=== PATIENT | female | born 1975 | race American Indian/Alaskan Native ===

== ENCOUNTER 2018-06-19 07:12 | Observation (INO) | payer MEDICAID ==
[2018-06-14 10:48] LABS: Basophils # (Auto) 0.1 K/mm3 (0.0-0.1); Basophils % (Auto) 1.1 % (0.0-1.8); Eosinophils # (Auto) 0.1 K/mm3 (0.0-0.4); Eosinophils % (Auto) 2.6 % (0.0-4.3); Hematocrit 35.3 % (30.3-42.9); Hemoglobin 11.9 gm/dl (10.1-14.3); Lymphocytes # (Auto) 1.9 K/mm3 (1.2-5.4); Mean Corpuscular HGB Conc 34 % (30-34); Mean Corpuscular Volume 80 fl (79-97); Monocytes # (Auto) 0.3 K/mm3 (0.0-0.8); Platelet Count 345 K/mm3 (140-440); Red Blood Count 4.41 M/mm3 (3.65-5.03)
--- NOTE | 2018-06-14 10:52 | Anesthesia Consultation ---
Anesthesia Consult and Med Hx Date of service: 06/19/18 - Airway Anesthetic Teeth Evaluation: Good ROM Head & Neck: Adequate Mental/Hyoid Distance: Adequate Mallampati Class: Class II Intubation Access Assessment: Good - Pulmonary Exam CTA: Yes - Cardiac Exam Cardiac Exam: RRR - Pre-Operative Health Status ASA Pre-Surgery Classification: ASA2 Proposed Anesthetic Plan: General - Cardiovascular System Hx Hypertension: Yes (x 7yrs) - Central Nervous System Hx Psychiatric Problems: No - Hematic Hx Anemia: Yes - Other Systems Hx Cancer: No
[2018-06-14 10:55] LABS: Red Cell Distribution Width 21.2 % (13.2-15.2)
[~2018-06-19 07:12] MED LIST: LACTATED RINGERS 1,000 ML IV SCH; NEURONTIN PO NR; SUBLIMAZE IV SCH; TYLENOL PO NR; VERSED IV SCH
--- NOTE | 2018-06-19 07:58 | History and Physical Report ---
History of Present Illness Date of examination: 06/19/18 Chief complaint: Symptomatic uterine fibroids History of present illness: Pt is a 43yo BF LMP 04/02/18 presents for surgical evaluation and treatment of uterine fibroids. She complains of prolonged heavy vaginal bleeding and pelvic pain. Pelvic u/s showed an enlarged uterus 11.2 x 9 x 8cm with several fibroids. She desires a Hysterectomy with ovarian conservation, and is therefore scheduled for a Robotic Assisted Total Hysterectomy with Bilateral salpingectomy. 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 Family/Genetic History: none Social history: no significant social history, single Medications and Allergies Allergies Allergy/AdvReac Type Severity Reaction Status Date / Time No Known Allergies Allergy Unverified 06/13/18 10:00 Home Medications Medication Instructions Recorded Confirmed Last Taken Type Atenolol [Tenormin] 50 mg PO DAILY 06/13/18 06/13/18 Unknown History Ergocalciferol(Vitamin D2)(Nf) 400 unit PO DAILY 06/13/18 06/13/18 Unknown History [Vitamin D (Nf)] Ferrous Sulfate [Iron 325 MG] 325 mg PO DAILY 06/13/18 06/13/18 Unknown History amLODIPine [Norvasc] 10 mg PO DAILY 06/13/18 06/13/18 Unknown History Active Meds: Active Medications Fentanyl (Sublimaze) 100 mcg IV ONCE WU Stop: 06/19/18 23:00 Last Admin: 06/19/18 07:24 Dose: 100 mcg Documented by: Gabapentin (Neurontin) 300 mg PO PREOP NR Stop: 06/19/18 23:00 Last Admin: 06/19/18 07:26 Dose: 300 mg Documented by: Lactated Ringer's (Lactated Ringers) 1,000 mls @ 42 mls/hr IV DIRECT WU Last Admin: 06/19/18 07:26 Dose: 42 mls/hr Documented by: Midazolam HCl (Versed) 2 mg IV PREOP WU Stop: 06/19/18 23:00 Last Admin: 06/19/18 07:24 Dose: 2 mg Documented by: Review of Systems All systems: negative - Vital Signs Vital signs: Vital Signs Temp Pulse Resp BP Pulse Ox 98.1 F 72 18 135/80 100 06/14/18 10:30 06/14/18 10:30 06/14/18 10:30 06/14/18 10:30 06/14/18 10:30 Temp Pulse Resp BP Pulse Ox 98.1 F 72 18 135/80 100 06/14/18 10:30 06/14/18 10:30 06/19/18 07:24 06/14/18 10:30 06/14/18 10:30 - Physical Exam Breasts: Positive: deferred Cardiovascular: Regular rate Lungs: Positive: Clear to auscultation Abdomen: Positive: normal appearance Genitourinary (Female): Positive: normal external genitalia Vagina: Positive: normal moisture Uterus: Positive: enlarged Extremities: Positive: normal Results Result Diagrams: 06/14/18 10:40 All other labs normal. Ultrasound: report reviewed Assessment and Plan A: Symptomatic uterine fibroids Menorrhagia P: Admit for a Robotic Assisted Total Hysterectomy with Bilateral salpinge ctomy - Patient Problems (1) Uterine fibroid Onset Date: 06/19/18 Current Visit: Yes Status: Acute Qualifiers: Uterine leiomyoma location: intramural, submucous, and subserous Qualified Code(s): D25.1 - Intramural leiomyoma of uterus; D25.0 - Submucous leiomyoma of uterus; D25.2 - Subserosal leiomyoma of uterus Plan to address problem: A: Symptomatic uterine fibroids Menorrhagia P: Admit for a Robotic Assisted Total Hysterectomy with Bilateral Salpingectomy (2) Menorrhagia with irregular cycle Onset Date: 06/19/18 Current Visit: Yes Status: Acute
[2018-06-19] MEDS ORDERED: XYLOCAINE 1% 20 mL ONE (08:11)
[2018-06-19] MEDS ORDERED: MARCAINE-EPI 0.25%-1:200,000 INFILTRATI ONE (08:12)
[2018-06-19] MEDS ORDERED: ZOFRAN ONE (08:38)
[2018-06-19] MEDS ORDERED: ZEMURON IV ONE (08:38)
[2018-06-19] MEDS ORDERED: DIPRIVAN 10 MG/ML IV ONE (08:38)
[2018-06-19] MEDS ORDERED: TORADOL ONE (08:38)
[2018-06-19] MEDS ORDERED: XYLOCAINE MPF 2% ONE (08:38)
[2018-06-19] MEDS ORDERED: SUBLIMAZE ONE (08:38)
[2018-06-19] MEDS ORDERED: ANCEF/STERILE WATER 2 GM/20 ML 2 GM/20 ML SYRINGE IV NR (09:00)
[2018-06-19] MEDS ORDERED: NEOSPORIN GU IR ONE ×2 (09:35→11:03)
[2018-06-19] MEDS ORDERED: NACL 0.9% IR ONE ×2 (11:03)
[2018-06-19] MEDS ORDERED: DILAUDID ONE ×2 (11:35→12:14)
[2018-06-19] MEDS ORDERED: BLOXIVERZ ONE (11:36)
[2018-06-19] MEDS ORDERED: ROBINUL ONE (11:36)
[2018-06-19] MEDS ORDERED: ZOFRAN IV PRN (12:07)
[2018-06-19] MEDS ORDERED: MILK OF MAGNESIA PO PRN (12:07)
[2018-06-19] MEDS ORDERED: SODIUM CHLORIDE FLUSH SYRINGE 10 ML IV PRN (12:07)
[2018-06-19] MEDS ORDERED: NORCO 5/325 PO PRN (12:07)
[2018-06-19] MEDS ORDERED: TYLENOL PO PRN (12:07)
[2018-06-19] MEDS ORDERED: DILAUDID IV PRN (12:13)
--- NOTE | 2018-06-19 12:19 | Operative Report ---
Operative Report Operative Report: Date of procedure: 06/19/2018 Pre-operative diagnosis: 1. Symptomatic uterine fibroids 2. Menorrhagia Post-operative diagnosis: Same Procedure name(s): 1. Robotic-assisted total hysterectomy 2. Bilateral salpingectomy Surgeon: Narayan Childress MD Criminal Justice Social Worker: Val Mitchell CSA Anesthesia: [place] Block followed by general endotracheal intubation EBL: Less than 100 mL's Findings: A 12-14 week size myomatous uterus with normal tubes and ovaries bilaterally. Procedure: After the patient's first correctly identified she was prepped and draped in the usual sterile fashion and placed in the dorsolithotomy position. The bladder was first catheterized using Bass catheter and the speculum was placed in the vagina and the anterior lip of the cervix was grasped using a single-tooth tenaculum, and the medium Vesicare cup was placed. The tenaculum and speculum was then removed from the vagina and attention was then turned to the abdomen. The skin knife was used to make a small incision approximately 5 cm above the umbilicus through which a 12 mm trocar was placed under direct visualization. After adequate amount of abdominal insufflation visualization of the pelvic organs found the uterus to be enlarged and the tubes and ovaries were found to be normal bilaterally. A right and left paramedian incision was made through which the 8 mm trochars were placed under direct visualization and a 5 mm trocar was placed in the right lower quadrant. The patient was then placed in steep Trendelenburg positioning and the robot was docked on the patient's left side. After all the robotic ports were connected and adequate functioning of the robotic arms were tested the surgeon then proceeded to the console to begin the hysterectomy. First the left round ligament was grasped, cauterized and cut, the left utero- ovarian ligaments were grasped, cauterized and cut, and the left fallopian tube also grasped, cauterized and cut along the mesosalpinx, thus freeing the left ovary from the left uterine sidewall. The same procedure was performed on the right. The right round ligament was grasped, cauterized and cut, the right utero-ovarian ligaments were grasped, cauterized and cut, and the right fallopian tube also grasped, cauterized and cut along the mesosalpinx, thus freeing the right ovary from the right uterine sidewall. The bladder flap was taken down anteriorly and the uterine vessels were grasped, cauterized and cut bilaterally. The cardinal ligaments were sequentially grasped, cauterized and cut down to the level of the uterosacral ligaments. At this time the posterior colpotomy was performed over the Vcare cup, and the cervix was circumscribed beginning posteriorly and meeting anteriorly until the cervix was freed. The cervix and uterus was then removed through the vagina and sent to pathology. The vaginal cuff was then closed using 2-0 Vloc suture in a running fashion. Irrigation was then performed and after good hemostasis was achieved the procedure was considered complete. The Tisseel sealant was then sprayed across the vaginal cuff site, and after excellent hemostasis was assured Interceed was placed across the vaginal cuff site. The abdominal pressure was reduced to 5 mmHg and excellent hemostasis was assured. All instruments were then removed f rom the abdominal cavity. And each incision was closed using 0 Vicryl suture in a [id number] configuration on the fascia followed by 4-0 Monocryl suture in a sub-cuticular fashion on the skin. Each incision was also infiltrated using 0.5% Marcaine solution. The vaginal pack was removed. The patient tolerated the procedure well and was transported to the recovery room in stable condition.
[2018-06-19] MEDS ORDERED: ANCEF/NS 1 GM/50 ML 1 GM/50 ML BAG IV SCH (13:00)
[2018-06-19] MEDS ORDERED: D5LR 1,000 ML IV SCH (13:00)
[2018-06-19] MEDS ORDERED: MORPHINE IV ONE (13:55)
[2018-06-19] MEDS: ANCEF/NS 1 GM/50 ML 1 GM/50 ML BAG IV SCH (16:50)
[2018-06-19] MEDS ORDERED: CEPACOL X STRENGTH MM PRN (17:08)
[2018-06-19] MEDS: TORADOL IV SCH ×2 (18:03→23:59)
[2018-06-19] MEDS: PERCOCET 5/325 PO PRN (19:50)
[2018-06-19] MEDS: COLACE PO SCH (21:38)
[2018-06-19] MEDS ORDERED: AMBIEN PO PRN (22:23)
[2018-06-20] MEDS: ANCEF/NS 1 GM/50 ML 1 GM/50 ML BAG IV SCH
[2018-06-20] MEDS: PERCOCET 5/325 PO PRN ×3 (04:25→16:31)
[2018-06-20] MEDS: TORADOL IV SCH (05:25)
[2018-06-20 07:43] LABS: Hematocrit 34.6 % (30.3-42.9); Hemoglobin 11.4 gm/dl (10.1-14.3)
--- NOTE | 2018-06-20 08:52 | Progress Note ---
Assessment and Plan - Patient Problems (1) Uterine fibroid Onset Date: 06/19/18 Current Visit: Yes Status: Resolved Qualifiers: Uterine leiomyoma location: intramural, submucous, and subserous Qualified Code(s): D25.1 - Intramural leiomyoma of uterus; D25.0 - Submucous leiomyoma of uterus; D25.2 - Subserosal leiomyoma of uterus (2) Menorrhagia with irregular cycle Onset Date: 06/19/18 Current Visit: Yes Status: Resolved (3) S/P robot-assisted surgical procedure Onset Date: 06/20/18 Current Visit: Yes Status: Resolved Plan to address problem: A: S/P RATH - pod #1 Doing well Asymptomatic anemia - stable P: May go home today. Subjective - Subjective Date of service: 06/20/18 Principal diagnosis: s/p RATH - POD #1 Interval history: Pt is feeling well s/p a Robotic Assisted Total Hysterectomy with Bilateral salpingectomy. She is tolerating a liquid diet without nausea or vomiting, ambulating and voiding without difficulty. Patient reports: appetite normal, voiding normally, pain well controlled, ambulating normally, no dizzy ambulation, no flatus, no nauseated Objective - Vital Signs Latest vital signs: Vital Signs Temp Pulse Resp BP BP Pulse Ox 06/20/18 07:55 98.7 F 62 20 113/69 97 06/20/18 04:40 98.4 F 60 18 121/71 98 06/19/18 23:59 98.4 F 67 20 116/76 96 06/19/18 20:16 99.1 F 76 18 131/86 96 06/19/18 16:10 97.5 F L 60 18 110/59 06/19/18 15:13 99 06/19/18 13:05 97.6 F 62 18 119/70 98 06/19/18 12:42 58 L 14 106/68 100 06/19/18 12:37 16 06/19/18 12:27 97.2 F L 54 L 12 106/66 100 06/19/18 12:12 58 L 12 109/65 100 06/19/18 12:07 64 22 114/71 100 06/19/18 12:02 72 16 113/70 100 06/19/18 11:57 98.7 F 74 16 117/71 100 06/19/18 08:50 57 L 18 111/67 98 Intake and Output 06/19/18 06/20/18 06/20/18 22:59 06:59 14:59 Intake Total 50 Output Total 300 1000 Balance -250 -1000 Intake: IV 50 ANCEF/NS 1 GM/50 ML 1 gm 50 In 50 ml @ 100 mls/hr IV Q8H [facility] Rx#:[id number] Oral 0 Output: Urine 300 1000 Indwelling Catheter 300 1000 Other: Total, Intake Amount 0 Total, Output Amount 300 400 Voiding Method Indwelling Catheter - Exam Cardiovascular: Present: Regular rate Abdomen: Present: normal appearance, soft Extremities: Present: normal Incision: Present: normal, dry, intact - Labs Labs: Laboratory Tests 06/14/18 06/14/18 06/19/18 10:40 10:40 07:45 WBC 4.7 RBC 4.41 Hgb 11.9 Hct 35.3 MCV 80 MCH 27 L MCHC 34 RDW 21.2 H Plt Count 345 Lymph % (Auto) 41.0 H [place] % (Auto) 7.0 Eos % (Auto) 2.6 Baso % (Auto) 1.1 Lymph # 1.9 [place] # 0.3 Eos # 0.1 Baso # 0.1 Seg Neutrophils % 48.3 Seg Neutrophils # 2.3 HCG, Qual Negative Blood Type A POSITIVE Antibody Screen Negative 06/20/18 07:03 WBC RBC Hgb 11.4 Hct 34.6 MCV MCH MCHC RDW Plt Count Lymph % (Auto) [place] % (Auto) Eos % (Auto) Baso % (Auto) Lymph # [place] # Eos # Baso # Seg Neutrophils % Seg Neutrophils # HCG, Qual Blood Type Antibody Screen
--- NOTE | 2018-06-20 08:58 | Discharge Summary ---
Providers - Providers Date of Admission: 06/19/18 12:07 Date of discharge: 06/20/18 Attending physician: ANT DELGADO Primary care physician: ADEEL DODSON Hospitalization Reason for admission: other (Symptomatic uterine fibroids; Menorrhagia) Procedure: other (Robotic Assisted Total Hysterectomy with Bilateral Salpingectomy) Incision: normal, dry, intact Other procedures: none complications: none Discharge diagnosis: other (s/p RAT) Hospital course: Pt is a 43yo BF LMP 04/02/18 who presented for surgical evaluation and treatment of uterine fibroids. She complained of prolonged heavy vaginal bleeding and pelvic pain. Pelvic u/s showed an enlarged uterus 11.2 x 9 x 8cm with several fibroids. She underwent an uncomplicated Robotic Assisted Total Hysterectomy with Bilateral salpingectomy, and by POD #1 she was tolerating a reg diet without nausea or vomiting, ambulating and voiding without difficulty. She was therefore discharged to home on POD #1 in stable condition. Condition at discharge: Good Disposition: DC-01 TO HOME OR SELFCARE - Discharge Diagnoses (1) Uterine fibroid Status: Resolved Qualifiers: Uterine leiomyoma location: intramural, submucous, and subserous Qualified Code(s): D25.1 - Intramural leiomyoma of uterus; D25.0 - Submucous leiomyoma of uterus; D25.2 - Subserosal leiomyoma of uterus (2) Menorrhagia with irregular cycle Status: Resolved (3) S/P robot-assisted surgical procedure Status: Resolved Plan - Discharge Medications Prescriptions: Ibuprofen [Motrin] 800 mg PO Q8HR PRN #30 tablet PRN Reason: Pain, Mild (1-3) HYDROcodone/APAP 5-325 [[place] 5-325 mg TAB] 1 each PO Q6HR PRN #30 tablet PRN Reason: Pain, Moderate (4-6) - Provider Discharge Summary Activity: routine, no sex for 6 weeks, no heavy lifting 4 weeks, no strenuous exercise Diet: routine Instructions: routine Additional instructions: [] Smoking cessation referral if applicable(refer to patient education folder for contact #) [] Refer to [facility] Booklet Call your doctor immediately for: * Fever > 100.5 * Heavy vaginal bleeding ( >1 pad per hour) * Severe persistent headache * Shortness of breath * Reddened, hot, painful area to leg or breast * Drainage or odor from incision. * Keep incision clean and dry at all times and follow doctor's instructions regarding bathing/showering - Follow up plan Follow up: ADEEL DODSON MD [Primary Care Provider] - 7 Days ANT DELGADO MD [Staff Physician] - 14 Days
[2018-06-20] MEDS ORDERED: TENORMIN PO SCH (10:00)
[2018-06-20] MEDS ORDERED: celeXA PO SCH (10:00)
[2018-06-20] MEDS ORDERED: FEOSOL PO SCH (10:00)
[2018-06-20] MEDS ORDERED: NORVASC PO SCH (10:00)
[2018-06-20] MEDS: COLACE PO SCH (10:33)
[2018-06-20] MEDS ORDERED: IBUPROFEN PO PRN (15:01)
[2018-06-20] MEDS ORDERED: PEPCID PO SCH (16:00)
[2018-06-20 17:02] VITALS: BP 121/83
== END 2018-06-20 18:22 | disposition home or self-care (01) ==
LOC: OR 07:12 → OB 12:07
PROVIDERS: ADMIT Obstetrics & Gynecology; ATTEND Obstetrics & Gynecology
DX: D25.9 Leiomyoma of uterus, unspecified (principal); N92.1 Excessive and frequent menstruation with irregular cycle; I10 Essential (primary) hypertension; Z79.899 Other long term (current) drug therapy; Z90.79 Acquired absence of other genital organ(s)
CPT/HCPCS: 36415; 58554; 84703; 85014; 85018; 85025; 86850; 86900; 86901; 88307; 96365; 96366; 96375; 96376; A4217; C1765; C9250; G0378; J0690; J1170; J1885; J2250; J2270; J2405; J2704; J2710; J3010; J7120; J7121; S2900